=== PATIENT | female | born 1960 | race Caucasian/White ===

== ENCOUNTER 2018-02-22 03:05 | Emergency (ER) | payer MEDICAID, OTHER ==
--- NOTE | 2018-02-22 03:36 | ED Physician Chart ---
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 says pain was sharp and intense, decided to leave work and come to ER. called for daughter to bring her to ER. reports sharp abdominal pain decreasing intensity since arrival to ER. no vomiting, no hematemsis. no diarrhea. no fever, no CP, no SOB. says that pain is getting better spontaneously. also says she has appt with doctor at [facility] today to have this further evaluated. brought CT, US and MRI imaging with her to ER. large hemangiomas right lobe of liver. mod factors: none assoc s/s: none hx from pt and daughter. Allergies:: Allergies Allergy/AdvReac Type Severity Reaction Status Date / Time No Known Allergies Allergy Verified 02/22/18 03:09 Vitals:: Vital Signs - 8 hr 02/22/18 03:10 Temp 98.1 F HR 89 RR 18 BP 141/86 O2 Sat % 98 Historian:: Patient, Family Member Review:: Nurse's Note Reviewed ED Review of Systems - Review of Systems General/Constitutional: No fever Skin: No rash Head: No headache Eyes: No loss of vision ENT: No sore throat Neck: No stiffness Cardio Vascular: No edema Pulmonary: No cough GI: No vomiting, No diarrhea G/U: No dysuria, No hematuria Prop Worker: No abnormal vaginal bleed Musculoskeletal: No bone or joint pain Endocrine: No polydipsia Psychiatric: No depression Allergic/Immuno: No urticaria Neurological: No syncope, No seizure ED Past Medical History - Past Medical History Past Medical History: HTN Family History: None Social History: Non Smoker, No Alcohol, No Drug Use, Surgical History: Psychiatricy History: None Medication: Reviewed Family Medical History - Family Member Daughter Ethnicity: Living Status: Still Living ED Physical Exam - Physical Examination General/Constitutional: Awake, Well-developed, well-nourished, Alert, No distress, GCS 15, Non-toxic appearing, Ambulatory Head: Atraumatic Eyes: Lids, conjuctiva normal, PERRL, EOMI Skin: Nl inspection, No ecchymosis, Well hydrated ENMT: External ears, nose nl Neck: Nontender, Full ROM w/o pain, No nuchal rigidity Respiratory: Nl effort/Exclusion, Clear to Auscultation, No Wheeze/Rhonchi/Rales Cardio Vascular: RRR, No murmur, gallop, rubs, NL S1 S2 GI: No tenderness/rebounding/guarding, Normal BS's, Nondistended, No McBurney tenderness : No CVA tenderness Extremities: No tenderness or effusion, normal strength in all extremities, No edema, Normal digits & nails Neuro/Psych: Alert/oriented, Normal sensory exam, Normal motor strength, Judgement/insight normal, Mood normal, No focal deficits Misc: Normal back, No paraspinal tenderness ED Labs/Radiology/EKG Results - Lab Results Results: Laboratory Results - last 24 hr 02/22/18 02/22/18 03:45 03:45 WBC 6.1 RBC 3.48 L Hgb 10.8 L Hct 32.6 L MCV 93.6 MCH 31.2 H MCHC Differential 33.3 RDW 13.0 Plt Count 217 MPV 6.7 Neutrophils % 74.6 Lymphocytes % 19.1 L Monocytes % 4.8 Eosinophils % 0.9 Basophils % 0.6 Sodium 142 Potassium 3.8 Chloride 105 Carbon Dioxide 24.6 Anion Gap 16.2 H BUN 31 H Creatinine 0.8 Est GFR ( Amer) > 60.0 Est GFR (Non-Af Amer) > 60.0 BUN/Creatinine Ratio 38.8 Glucose 149 H Calcium 9.3 Total Bilirubin 0.4 AST 21 ALT 19 Alkaline Phosphatase 132 H Total Protein 6.3 Albumin 4.4 Globulin 1.9 Albumin/Globulin Ratio 2.3 H ED Assessment - Assessment General Assessment: medical decision making pt with abdominal pain as descrbed worsened while having argument at work then after departing work pain has spontaneously reduced CBC shows no acute finding. seems that abdominal pain flare has emotional component. pt has appt in few hours for specialty evaluation to help determine course of action. is stable here. 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 will clear pt and encourage specialty follow up in few hours. ED Septic Shock - . Is Septic Shock (SBP<90, OR Lactate>4 mmol\L) present?: No - <6hrs of presentation: Vital Signs: Vital Signs - 8 hr 02/22/18 03:10 Temp 98.1 F HR 89 RR 18 BP 141/86 O2 Sat % 98 Assessment of Lungs: Lung CTA bilateral Assessment of Heart: RRR, No Rub, No Murmur Capillary refill evaluation: Capillary refill < 2 secs Skin Exam: Warm, Dry, Good Turgur ED Reassessment (Disposition) - Reassessment Reassessment:: pt with improved abdominal pain no worsening labs show anemia, pt with appt with specialist in few hours advise FU with specialist for further evaluation and treatment Reassessment Condition:: Improved - Diagnosis Diagnosis:: abdominal pain improved - Aftercare/Follow up Instructions Aftercare/Follow-Up Instructions:: Refer to Discharge Instructions Medication Prescribed:: no meds prescribed - Patient Disposition Discharge/Transfer:: Home Condition at Disposition:: Stable, Improved
[2018-02-22 04:01] LABS: % BASOPHILS 0.6 % (0.0-2.0); % EOSINOPHILS 0.9 % (0.0-5.0); % LYMPHOCYTES 19.1 % (20.0-50.0); % MONOCYTES 4.8 % (2.0-10.0); % NEUTROPHILS 74.6 % (40.0-80.0); EOSINOPHILE ABSOLUTE 0.1 Th/cmm (0.1-0.4); HEMATOCRIT 32.6 % (41.0-60); HEMOGLOBIN 10.8 gm/dL (12-16); LYMPHOCYTE ABSOLUTE 1.2 Th/cmm (1.5-3.0); MEAN CELL VOLUME 93.6 fl (81-100); MEAN CORPUSCULAR HEMOGLOBIN 31.2 pg (27.0-31.0); MEAN CORPUSCULAR HGB CONC 33.3 pg (28.0-36.0); MEAN PLATELET VOLUME 6.7 fl; MONOCYTE ABSOLUTE 0.3 Th/cmm (0.3-1.0); NEUTROPHILE ABSOLUTE 4.5 Th/cmm (1.8-8.0); PLATELET COUNT 217 Th/cmm (150-400); RED BLOOD COUNT 3.48 Mil/cmm (3.80-5.10); WHITE BLOOD COUNT 6.1 Th/cmm (4.8-10.8)
[2018-02-22 04:24] LABS: ALB/GLOB RATIO 2.3 (1.0-1.8); ALBUMIN 4.4 gm/dL (3.7-5.3); ALKALINE PHOSPHATASE 132 U/L (34-104); ANION GAP 16.2 (7.0-16.0); BILIRUBIN,TOTAL 0.4 mg/dL (0.3-1.0); BUN - UREA NITROGEN 31 mg/dL (7-25); CALCIUM SERUM 9.3 mg/dL (8.6-10.3); CARBON DIOXIDE 24.6 mEq/L (21.0-31.0); CHLORIDE 105 mEq/L (98-107); CREATININE - SERUM 0.8 mg/dL (0.6-1.2); GFR AFRICAN-AMERICAN > 60.0 ml/min (>90); GFR NON AFRICAN-AMERICAN > 60.0 ml/min; GLUCOSE 149 mg/dL (70-105); POTASSIUM SERUM 3.8 mEq/L (3.5-5.1); SGOT 21 U/L (13-39); SGPT/ALT 19 U/L (7-52); SODIUM SERUM 142 mEq/L (136-145); TOTAL PROTEIN,SERUM 6.3 gm/dL (6.0-8.3)
== END 2018-02-22 04:50 | disposition home or self-care (01) ==
LOC: ER 03:05
DX: R10.9 Unspecified abdominal pain (principal); I10 Essential (primary) hypertension; Z98.890 Other specified postprocedural states
CPT/HCPCS: 36415-UA; 80053-TC; 85025-TC; Z7502